=== PATIENT | female | born 1950 | race Caucasian/White ===

== ENCOUNTER 2017-06-29 19:19 | Emergency (ER) | payer OTHER, BC ==
[2017-06-29 19:44] VITALS: BP 169/82; PULSE 104; TEMP 98.6; BMI 34.3
--- NOTE | 2017-06-29 19:55 | PDOC ---
Rapid Medical Evaluation Chief Complaint: Palpitations Time Seen by Provider: 06/29/17 19:45 Medical Evaluation: Allergies Allergy/AdvReac Type Severity Reaction Status Date / Time codeine Allergy Mild Itching Verified 06/29/17 19:42 Vital Signs Temp Pulse Resp BP Pulse Ox 98.6 F 104 H 18 169/82 100 06/29/17 19:42 06/29/17 19:42 06/29/17 19:42 06/29/17 19:42 06/29/17 19:42 06/29/17 19:54 The patient presents with a chief complaint of: palpitations. This has never happened to her before. Hx of MVP, HTN. Feels like her heart is racing. Afebrile I have performed a brief in-person evaluation of this patient; Pertinent physical exam findings: Tachycardic, regular rhythm. CTAB, afebrile I have ordered the following: CBC, CMP, EKG, PT/INR, TSH The patient will proceed to the ED for further evaluation.
[2017-06-29 20:39] LABS: EOS % 1.6 % (0-4.5); HEMATOCRIT 36.6 % (32.4-45.2); HEMOGLOBIN 12.3 GM/dL (10.7-15.3); LYMPH % 21.2 % (8-40); MCH 29.9 pg (25.7-33.7); MCHC 33.5 g/dl (32.0-36.0); MEAN CELL VOLUME 89.2 fl (80-96); MEAN PLT VOLUME 8.2 fl (7.5-11.1); MONO % 7.8 % (3.8-10.2); NEUT % 68.4 % (42.8-82.8); PLATELET COUNT 374 K/MM3 (134-434); RDW 13.8 % (11.6-15.6)
[2017-06-29 20:46] LABS: INR 1.02 (0.82-1.09); PROTHROMBIN TIME (PATIENT) 11.5 SEC (9.98-11.88)
--- NOTE | 2017-06-29 20:51 | PDOC ---
History of Present Illness - General History Source: Patient Exam Limitations: No Limitations - History of Present Illness Initial Comments: 06/29/17 23:49 Patient is a 66 year old female with a significant past medical history of herniated disc of the cervical spine, right lower extremity DVT (diagnosed 2011), hyperlipidemia, and hypertension who presents to the ED with complaints of chest palpitations that began this morning. Patient reports experiencing sudden chest palpitations this morning stating i felt no pain, but my heart was beating much faster than normal. She reports experiencing slight left calf tenderness but is unsure if it related to her increased heart rate. Denies chest pain, SOB. Denies nausea, vomiting. Denies fevers, chills. Denies contact with sick individuals, out of state travelling. Denies any other symptoms. Allergies Codeine. Social history: Former smoker (last 1995). Less than social (Last drink 2 days ago). No illicit drugs. Surgical history: None PMD: None <Italo Ramires - Last Filed: 06/29/17 23:49> <Nuria Conway - Last Filed: 06/30/17 01:49> - General Chief Complaint: Palpitations Stated Complaint: PALPITATIONS Time Seen by Provider: 06/29/17 19:45 Past History <Italo Ramires - Last Filed: 06/29/17 23:49> - Past Medical History Cardiac Disorders: Yes (MVP) COPD: No DVT: Yes (s/p rt knee replacement) GI Disorders: Yes (ulcers) HTN: Yes Hypercholesterolemia: Yes Thyroid Disease: Yes - Suicide/Smoking/Psychosocial Hx Smoking Status: No Smoking History: Former smoker Have you smoked in the past 12 months: No Number of Cigarettes Smoked Daily: 0 If you are a former smoker, when did you quit?: 1995 Information on smoking cessation initiated: No Hx Alcohol Use: No <Nuria Conway - Last Filed: 06/30/17 01:49> - Past Medical History Allergies/Adverse Reactions: Allergies Allergy/AdvReac Type Severity Reaction Status Date / Time codeine Allergy Mild Itching Verified 06/29/17 19:42 Home Medications: Ambulatory Orders Atorvastatin Calcium [Lipitor] 40 mg PO DAILY 01/27/13 Levothyroxine [Synthroid] 25 mcg PO DAILY 02/02/13 Nortriptyline HCl [Pamelor] 25 mg PO DAILY 02/02/13 Aspirin [ASA -] 81 mg PO DAILY 06/29/17 Donepezil HCl [Aricept -] 10 mg PO DAILY 06/29/17 Lisinopril/Hydrochlorothiazide [Lisinopril-Hctz 20-25 mg Tab] 1 each PO DAILY Nadolol [Corgard] 80 mg PO DAILY 06/29/17 Pramipexole Dihydrochloride [Mirapex -] 0.5 mg PO BID 06/29/17 Review of Systems - Review of Systems Able to Perform ROS?: Yes Comments:: 06/29/17 23:49 GENERAL/CONSTITUTIONAL: No fever or chills. No weakness. HEAD, EYES, EARS, NOSE AND THROAT: No change in vision. No ear pain or discharge. No sore throat. GASTROINTESTINAL: No nausea, vomiting, diarrhea or constipation. GENITOURINARY: No dysuria, frequency, or change in urination. CARDIOVASCULAR: +Palpitations. No chest pain or shortness of breath. RESPIRATORY: No cough, wheezing, or hemoptysis. MUSCULOSKELETAL: +Left calf pain. No joint or muscle swelling. No neck or back pain. SKIN: No rash NEUROLOGIC: No headache, vertigo, loss of consciousness, or change in strength/ sensation. ENDOCRINE: No increased thirst. No abnormal weight change. HEMATOLOGIC/LYMPHATIC: No anemia, easy bleeding, or history of blood clots. ALLERGIC/IMMUNOLOGIC: No hives or skin allergy. All Other Systems: Reviewed and Negative <Italo Ramires - Last Filed: 06/29/17 23:49> *Physical Exam - Vital Signs Last Vital Signs Temp Pulse Resp BP Pulse Ox 98.6 F 104 H 18 169/82 100 06/29/17 19:42 06/29/17 19:42 06/29/17 19:42 06/29/17 19:42 06/29/17 19:42 - Physical Exam Comments: 06/29/17 23:49 GENERAL/CONSTITUTIONAL: No fever or chills. No weakness. HEAD, EYES, EARS, NOSE AND THROAT: No change in vision. No ear pain or discharge. No sore throat. GASTROINTESTINAL: No nausea, vomiting, diarrhea or constipation. GENITOURINARY: No dysuria, frequency, or change in urination. CARDIOVASCULAR: +Palpitations. No chest pain or shortness of breath. RESPIRATORY: No cough, wheezing, or hemoptysis. MUSCULOSKELETAL: +Left calf pain. No joint or muscle swelling. No neck or back pain. SKIN: No rash NEUROLOGIC: No headache, vertigo, loss of consciousness, or change in strength/ sensation. ENDOCRINE: No increased thirst. No abnormal weight change. HEMATOLOGIC/LYMPHATIC: No anemia, easy bleeding, or history of blood clots. ALLERGIC/IMMUNOLOGIC: No hives or skin allergy. <Italo Ramires - Last Filed: 06/29/17 23:49> - Vital Signs Last Vital Signs Temp Pulse Resp BP Pulse Ox 98.6 F 104 H 18 169/82 100 06/29/17 19:42 06/29/17 19:42 06/29/17 19:42 06/29/17 19:42 06/29/17 19:42 <Nuria Conway - Last Filed: 06/30/17 01:49> Heart Score/ECG Review - ECG Intrepretation Comment:: 06/29/17 23:25 sinus tach at 111, nl axis, nl interval, lvh, no acute st/t wave findings <Nuria Conway - Last Filed: 06/30/17 01:49> ED Treatment Course - LABORATORY CBC & Chemistry Diagram: 06/29/17 20:20 06/29/17 20:20 - ADDITIONAL ORDERS Additional order review: Laboratory Results 06/29/17 06/29/17 06/29/17 20:20 20:20 20:20 PT with INR 11.50 INR 1.02 D D-Dimer Sodium 137 Potassium 3.5 Chloride 104 Carbon Dioxide 25 Anion Gap 8 BUN 21 H Creatinine 0.7 Creat Clearance w eGFR > 60 Random Glucose 92 Calcium 8.8 Total Bilirubin 0.6 AST 29 D ALT 42 D Alkaline Phosphatase 135 H Creatine Kinase 265 H Creatine Kinase Index 1.8 CK-MB (CK-2) 4.835 H Troponin I < 0.02 Total Protein 7.6 Albumin 4.1 TSH 0.44 D 06/29/17 20:03 PT with INR INR D-Dimer 609 H Sodium Potassium Chloride Carbon Dioxide Anion Gap BUN Creatinine Creat Clearance w eGFR Random Glucose Calcium Total Bilirubin AST ALT Alkaline Phosphatase Creatine Kinase Creatine Kinase Index CK-MB (CK-2) Troponin I Total Protein Albumin TSH 06/29/17 20:20 RBC 4.10 MCV 89.2 MCHC 33.5 RDW 13.8 MPV 8.2 Neutrophils % 68.4 Lymphocytes % 21.2 D Monocytes % 7.8 Eosinophils % 1.6 Basophils % 1.0 <Italo Ramires - Last Filed: 06/29/17 23:49> - LABORATORY CBC & Chemistry Diagram: 06/29/17 20:20 06/29/17 20:20 - ADDITIONAL ORDERS Additional order review: Laboratory Results 06/29/17 20:20 PT with INR 11.50 INR 1.02 D <Nuria Conway - Last Filed: 06/30/17 01:49> Medical Decision Making - Medical Decision Making 06/29/17 23:21 66yo female with palpitations -hx of hypothyroid on thyroid replacement -leg swelling, will obtain dopplers ekg sinus tach will obtain labs, cxr, dopplers -currently tachy will check trop, electrolytes hx of palpitations and has seen cards for it no new changes to her meds 06/30/17 01:47 ct negative no palpitations at this time no feelings of her heart racing stable for d/c home states she will 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 <Nuria Conway - Last Filed: 06/30/17 01:49> *DC/Admit/Observation/Transfer - Attestations Scribe Attestion: 06/29/17 23:50 Documentation prepared by Italo Ramires, acting as medical research scientist for Nuria Conway DO, MD/. <Italo Ramires - Last Filed: 06/29/17 23:49> - Discharge Dispostion Admit: No - Attestations Physician Attestion: 06/30/17 01:49 I, Dr. Nuria Conway DO, attest that this document has been prepared under my direction and personally reviewed by me in its entirety. I further attest, that it accurately reflects all work, treatment, procedures and medical decision -making performed by me. <Nuria Conway - Last Filed: 06/30/17 01:49> Diagnosis at time of Disposition: Palpitations - Discharge Dispostion Disposition: HOME Condition at time of disposition: Stable - Referrals Referrals: Ramirez Barajas MD [Staff Physician] - Obdulio Teixeira MD [Staff Physician] - - Patient Instructions Printed Discharge Instructions: DI for Palpitations Additional Instructions: Please continue to take all meds as prescribed. Please return to the ED with any further concerns. Please follow up with your PMD and your bus cleaner.
[2017-06-29 21:13] LABS: ALBUMIN 4.1 g/dl (3.4-5.0); ANION GAP 8 (8-16); BILIRUBIN,TOTAL 0.6 mg/dL (0.2-1.0); BLOOD UREA NITROGEN 21 mg/dL (7-18); CALCIUM 8.8 mg/dL (8.5-10.1); CHLORIDE 104 mmol/L (98-107); CO2 25 mmol/L (21-32); CREATININE 0.7 mg/dL (0.55-1.02); GLUCOSE,RANDOM 92 mg/dL (74-106); POTASSIUM 3.5 mmol/L (3.5-5.1); SGOT/AST 29 U/L (15-37); SGPT/ALT 42 U/L (12-78); SODIUM 137 mmol/L (136-145); TOT PROT 7.6 g/dl (6.4-8.2)
[2017-06-29 21:22] LABS: ALK PHOS 135 U/L (45-117)
--- NOTE | 2017-06-30 10:10 | EKG ---
Test Reason : Blood Pressure : / mmHG Vent. Rate : 111 BPM Atrial Rate : 111 BPM P-R Int : 166 ms QRS Dur : 088 ms QT Int : 344 ms P-R-T Axes : 068 011 068 degrees QTc Int : 467 ms SINUS TACHYCARDIA BIATRIAL ENLARGEMENT ABNORMAL ECG WHEN COMPARED WITH ECG OF 07-SEP-2013 16:54, NO SIGNIFICANT CHANGE WAS FOUND Confirmed by MD EDSON, LUIS ENRIQUE ([id number]) on 06/30/2017 10:09:39 AM Referred By: Confirmed By:LUIS ENRIQUE SANDHU MD
== END 2017-06-30 02:07 | disposition home or self-care (01) ==
LOC: JER 19:19
DX: R00.2 Palpitations (principal); E78.00 Pure hypercholesterolemia, unspecified; I10 Essential (primary) hypertension; Z86.718 Personal history of other venous thrombosis and embolism; Z87.891 Personal history of nicotine dependence; Z96.651 Presence of right artificial knee joint
CPT/HCPCS: 36415; 71046-TC; 71275-TC; 80053; 82550; 82553; 84443; 84484; 85025; 85379; 85610; 93005; 93010; 93970-TC; 99284-25

== ENCOUNTER 2022-08-23 04:03 | Day surgery (SDC) | payer OTHER, BC ==
[2022-08-18 11:39] VITALS: BMI 31.0
[2022-08-23] MEDS ORDERED: LIDOCAINE HCL/PF 2% SDV 5ML VIAL ONE (09:56)
[2022-08-23] MEDS ORDERED: PROPOFOL 20 ML ONE (09:56)
[2022-08-23] MEDS ORDERED: MIDAZOLAM HCL 2 MG/2 ML SINGLE DOSE VIAL ONE (09:56)
[2022-08-23] MEDS ORDERED: DEXAMETHASONE SOD PHOSPHATE 4 MG/1 ML VIAL ONE (10:20)
[2022-08-23] MEDS ORDERED: ONDANSETRON 4 MG/2 ML VIAL ONE (10:20)
[2022-08-23] MEDS ORDERED: ONDANSETRON 4 MG/2 ML VIAL IVPUSH PRN (10:49)
[2022-08-23] MEDS ORDERED: oxyCODONE HCL 5 MG TABLET PO PRN (10:49)
[2022-08-23] MEDS ORDERED: ACETAMINOPHEN 1000 MG/100 ML BAG IVPB PRN (10:49)
[2022-08-23] MEDS ORDERED: KETOROLAC TROMETHAMINE 30 MG/1 ML VIAL IVPUSH PRN (10:50)
[2022-08-23] MEDS ORDERED: LACTATED RINGERS SOLUTION 1,000 ML IV SCH (11:00)
[2022-08-23] MEDS ORDERED: KETOROLAC TROMETHAMINE 30 MG/1 ML VIAL ONE (11:02)
[2022-08-23] MEDS ORDERED: ACETAMINOPHEN INJECTION 100 ML IVPB ONE (11:02)
[2022-08-23 12:43] VITALS: RESP 18
[2022-08-23 13:56] VITALS: BP 148/80; PULSE 50; TEMP 97.4
== END 2022-08-23 13:59 | disposition home or self-care (01) ==
LOC: JASU-SURG 04:03
PROVIDERS: ATTEND Obstetrics & Gynecology
PROC: 0UB98ZZ Excision of Uterus, Via Natural or Artificial Opening Endoscopic (ICD-10-PCS; principal; 2022-08-23 10:00)
DX: D25.0 Submucous leiomyoma of uterus (principal); N84.0 Polyp of corpus uteri
CPT/HCPCS: 88305-TC; 94760; C9803-CS; U0003; U0005